=== PATIENT | male | born 1970 | race Caucasian/White ===

== ENCOUNTER 2023-11-21 09:19 | Emergency (ER) | payer OTHER, SELFPAY ==
[2023-11-21 09:37] VITALS: BP 164/100
[2023-11-21 10:09] LABS: % Basophils 1.4 % (0-2); % Immature Granulocytes 0.6 % (0-0.5); % Lymphocytes 23.1 % (20.5-51.1); % Monocytes 9.9 % (1.7-9.3); Absolute Basophils 0.1 10^3/uL (0-0.2); Absolute Eosinophils 0.1 10^3/uL (0-0.7); Absolute Lymphocytes 0.8 10^3/uL (1.2-3.4); Absolute Monocytes 0.4 10^3/uL (0.1-0.6); Absolute Neutrophils 2.3 10^3/uL (1.4-6.5); Hematocrit 42.8 % (39.0-52.0); Hemoglobin 15.6 g/dL (13.0-18.0); Mean Corp Hgb Conc. 36.4 g/dL (33.0-37.0); Mean Corpuscular Hgb 30.9 pg (27.0-31.0); Mean Corpuscular Volume 84.8 fL (80.0-94.0); Mean Platelet Volume 9.3 fL (7.4-10.4); Nucleated Red Blood Cells % 0 % (-); Platelet Count 123 10^3/uL (130-400); Red Blood Cell Count 5.05 10^6/uL (4.70-6.10); Red Cell Dist. Width 12.1 % (11.5-14.5); White Blood Cell Count 3.6 10^3/uL (4.8-10.8)
[2023-11-21 10:26] LABS: ALT (SGPT) 49 U/L (0-50); AST (SGOT) 47 U/L (17-59); Albumin 4.9 g/dl (3.5-5.0); Alkaline Phosphatase 73 U/L (38-126); Blood Urea Nitrogen 14 mg/dl (9-20); Calcium 9.4 mg/dl (8.4-10.2); Carbon Dioxide 18 mmol/L (22-30); Chloride 99 mmol/L (98-107); Glucose 289 mg/dl (70-99); Potassium 4.3 mmol/L (3.5-5.1); Sodium 135 mmol/L (135-145); Total Bilirubin 0.9 mg/dl (0.2-1.3); Total Protein 8.6 g/dl (6.3-8.2); eGFR > 60.00
[2023-11-21 11:08] VITALS: BMI 27.1
--- NOTE | 2023-11-21 11:09 | ED.GENMED ---
History of Present Illness
General
Chief Complaint: Numbness
Time Seen by Provider: 11/21/23 10:51
Travel History
Have you had any contact with someone who has COVID-19?: No
Do you have any symptoms of coronavirus? Fever > 100 degrees, chills, cough, shortness of breath, sore throat, loss of taste or smell, muscle aches, or headache?: No
History of Present Illness
History of Present Illness:
53-year-old male with history of hypertension presents the emergency department for evaluation of numbness to the right hand first second and third digits as well as half of the fourth digit. Symptoms began overnight waking from sleep. He is
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 Denies any symptoms into the initial exposure. Denies any upper arm symptoms, vision changes, or headaches.
Past History
Past History
ED Past Medical History: HTN and Other (GERD)
Social History
Tobacco: Non-smoker
Alcohol: Occasional
Personal:
Living: with family
Employment: Employed
Family History
Family History: Other (His father has a rare heart arrhythmia)
Review of Systems
Review of Systems
Allergies reviewed?: Yes
All Other Systems: ROS reviewed and negative except as documented in HPI and ROS
Phy Exam
Physical Exam
Physical Exam:
GEN: Well appearing, NAD, WDWN
HEENT: Oral mucosa moist, no scleral icterus
Cardiac: Regular rate
Lung: No respiratory distress, no tachypnea
MSK: No gross deformity or injuries
Skin: Good color, no pallor or jaundice, no rashes
Neuro: AO x3, moves all extremities freely. Normal strength of the right hand. Positive Tinel sign to the right carpal tunnel
Psych: Calm, cooperative
Course
Orders/Labs/Results
Orders:
Orders
11/21/23 09:53
CBC/With Diff [Complete Blood Count/With Diff] Urgent
CMP [Comprehensive Metabolic Panel] Urgent
Abnormal Lab Results
11/21/23
09:53
WBC 3.6 L 10^3/uL
(4.8-10.8)
Plt Count 123 L 10^3/uL
(130-400)
Absolute Lymphs (auto) 0.8 L 10^3/uL
(1.2-3.4)
Immature Gran % 0.6 H %
(0-0.5)
Monocytes % 9.9 H %
(1.7-9.3)
Carbon Dioxide 18 L mmol/L
(22-30)
Glucose 289 H mg/dl
(70-99)
Total Protein 8.6 H g/dl
(6.3-8.2)
11/21/23 09:53
11/21/23 09:53
Vital Signs
Initial and Last Documented VS:
Initial Vital Signs
Temp Pulse Resp BP Pulse Ox
97.8 F 84 16 164/100 98
11/21/23 09:37 11/21/23 09:37 11/21/23 09:37 11/21/23 09:37 11/21/23 09:37
Last Documented Vital Signs
Temp Pulse Resp BP Pulse Ox
97.8 F 84 16 164/100 98
11/21/23 09:37 11/21/23 09:37 11/21/23 09:37 11/21/23 09:37 11/21/23 09:37
MDM/Problems Addressed
MDM/Problems Addressed:
Patient's clinical symptoms are consistent with acute carpal tunnel syndrome, there is no concern from my standpoint of a toxic exposure particular given the duration of time between the potential exposure and the symptom onset. Discussed
supportive care
*Critical Care Note
Total Time (30-74mins, 75-104mins- exclusive of procedures): Not Applicable
ED Attending Note
-
Portions of this chart may have been created with voice recognition software.� Occasional wrong word or��sound alike� substitutions may have occurred due to the inherent limitations of voice recognition software.
Discharge Plan
Departure
Patient Disposition: Home (Routine Discharge)
Date of Disposition: 11/21/23
Time of Disposition: 11:10
Patient with high blood pressure during this ER visit?: No
Discharge Problem:
Acute carpal tunnel syndrome of right wrist
Instructions: Carpal Tunnel Syndrome (DC)
Prescriptions:
No Action
famotidine 40 MG tablet
40 mg PO DAILY
oseltamivir 75 MG capsule
75 mg PO BID 3 Days Qty: 6 0RF
Activity Restrictions/Additional Instructions:
Try [id number] anti-inflammatory medication such as ibuprofen 600 mg 3 times daily or naproxen 440 mg Daily for up to 10 days. You may also try [id number] carpal tunnel braces that can be purchased and worn during work or at nighttime.
If symptoms do not improve in 2 to 4 weeks consider following up with hand surgery
Interventions
Interventions:
*Risk Screen - Suicide Last Done: 11/21/23 09:37
*General Assessment Last Done: 11/21/23 09:37
*Neglect/Abuse Screening Last Done: 11/21/23 09:37
ED- Fall Risk Assessment Last Done: 11/21/23 11:10
*ED COVID-19 Vaccine History Last Done: 11/21/23 11:09
*Nursing Disposition Last Done: 11/21/23 11:23
ED- Neurological Assessment Last Done: 11/21/23 11:10
Discharge Date and Time
Discharge Date/Time: 11/21/23 11:24
== END 2023-11-21 11:24 | disposition home or self-care (01) ==
LOC: EMR 09:19
PROVIDERS: Emergency Medicine; EMERGENCY PHYSICIAN Emergency Medicine; FAMILY PHYSICIAN Family Medicine
DX: G56.01 Carpal tunnel syndrome, right upper limb (principal)
CPT/HCPCS: 99283; 80053; 85025